=== PATIENT | female | born 1965 ===

== ENCOUNTER 2016-06-04 12:09 | Emergency (ER) | payer OTHER ==
[2016-06-04 12:09] VITALS: BMI 32.9
[2016-06-04 12:24] VITALS: TEMP 97.7
--- NOTE | 2016-06-04 13:40 | C.PDOC ---
History Of Present Illness A 50 year old female presents, with a past medical history of Asthma and seasonal allergies, presents to the emergency room for the evaluation of a burning pruritic sensation to the face associated with dry rash, nasal swelling , and congestion that has gradually developed over the past week. Patient notes these symptoms have coincided with the recent weather changes. Patient admits similar symptoms in the past that are consistent with seasonal allergies. Patient states that she is usually treated with steroids by PMD. Patient otherwise denies fever, chills, headaches, dizziness, drooling, chest pain, shortness of breath, wheezing, or any other complaints. Time Seen by Provider: 06/04/16 13:06 Chief Complaint (Nursing): Allergic Reaction History Per: Patient History/Exam Limitations: no limitations Onset/Duration Of Symptoms: Gradual, Other (1 week) Current Symptoms Are (Timing): Still Present Possible Cause: Seasonal Allergies Associated Symptoms: Skin Rash, Swelling (Nasal swelling), Itching. denies: Trouble Swallowing Home/EMS Treatment: Steroids (Usually treated with steroid by PMD in the past.) Severity: Mild Recent travel outside of the [place]: No Past Medical History Reviewed: Historical Data, Nursing Documentation, Vital Signs Vital Signs: Last Vital Signs Temp 97.7 F 06/04/16 12:23 Pulse 72 06/04/16 13:57 Resp 18 06/04/16 13:57 BP 124/72 06/04/16 13:57 Pulse Ox 98 06/04/16 13:57 - Medical History PMH: Asthma Family History: States: Unknown Family Hx - Social History Hx Alcohol Use: No Hx Substance Use: No - Immunization History Hx Tetanus Toxoid Vaccination: Yes Hx Influenza Vaccination: No Hx Pneumococcal Vaccination: No Review Of Systems Except As Marked, All Systems Reviewed And Found Negative. Constitutional: Negative for: Fever, Chills ENT: Positive for: Nose Congestion, Other (Nasal swelling). Negative for: Nose Pain, Nose Discharge Cardiovascular: Negative for: Chest Pain Respiratory: Negative for: Cough, Shortness of Breath, Wheezing Gastrointestinal: Negative for: Nausea, Vomiting, Abdominal Pain, Diarrhea Skin: Positive for: Rash (Dry rash), Other (Burning pruritic sensation to the face) Neurological: Negative for: Headache, Dizziness Physical Exam - Physical Exam Appears: Well, Non-toxic, No Acute Distress Skin: Normal Color, Warm, Rash (dry erythematous rash perinasal area extend down to nasolabial and chin area. No cellulitis.) Eye(s): bilateral: Normal Inspection Nose: Other (buggy nasal mucosa) Oral Mucosa: Moist, No Drooling Tongue: Normal Appearing, No Swelling Lips: Normal Appearing, No Swelling Throat: Normal, No Erythema, No Exudate, No Drooling, Other (uvula midline, no edema.) Neck: Normal, Normal ROM, Supple Respiratory: Normal Breath Sounds, No Stridor, No Wheezing Extremity: Normal ROM, No Pedal Edema Neurological/Psych: Oriented x3, Normal Speech ED Course And Treatment O2 Sat by Pulse Oximetry: 97 Pulse Ox Interpretation: Normal Progress Note: On re-eavluation, pt is afebrile, hemodynmaicaly stable. Non- toxic. PulseOx 98% RA. ENT: no acute findings. uvula midline, no edema. Lungs : CTA B/L, BS equal B/L. neck: (-) meningeal sign. Pt has clinical findings c/ w seasonal allergy, eczema. Pt advised on course of ds. ref. to f/u with PMD in 2-3 days for re-eval. returbn if any new changes. Disposition Counseled Patient/Family Regarding: Diagnosis, Need For Followup, Rx Given - Disposition Referrals: Avelino Pitts MD [Staff Provider] - Disposition: HOME/ ROUTINE Disposition Time: 13:20 Condition: STABLE Additional Instructions: Take medication as prescribed Vaseline on area of eczema Follow up with PMD, [facility] in 2-3 days for re-evaluation. Return to Ed if nay worsening or new changes. Prescriptions: Loratadine [Claritin] 10 mg PO DAILY #10 tab Prednisone [Deltasone] 20 mg PO DAILY #4 tablet Instructions: Dermatitis (ED) - Clinical Impression Clinical Impression: Eczema of face, Seasonal allergies - Scribe Statement The provider has reviewed the documentation as recorded by the Scribrudolph Bradley All medical record entries made by the Scribe were at my direction and personally dictated by me. I have reviewed the chart and agree that the record accurately reflects my personal performance of the history, physical exam, medical decision making, and the department course for this patient. I have also personally directed, reviewed, and agree with the discharge instructions and disposition.
[2016-06-04 13:58] VITALS: BP 124/72; PULSE 72; RESP 18
[2016-06-04 20:55] VITALS: O2SAT 97
== END 2016-06-04 13:59 | disposition home or self-care (01) ==
LOC: C.ER 12:09
DX: L30.9 Dermatitis, unspecified (principal); J30.2 Other seasonal allergic rhinitis

== ENCOUNTER 2018-06-26 19:34 | Emergency (ER) | payer MEDICAID, OTHER ==
[2018-06-26 19:35] VITALS: BMI 32.9
[2018-06-26 19:43] VITALS: BP 157/83; PULSE 97; TEMP 98.4; O2SAT 98
--- NOTE | 2018-06-26 19:58 | C.PDOC ---
History Of Present Illness 52 year old female presents to ED with complaint of left wrist pain for the past 4 days and left knee pain for the past week. Patient notes increased pain on the left wrist with movement that improved slightly after applying topical bengay cream. Patient rates the wrist pain as a 6/10. Patient states that her knee pain makes it difficult to weight at times. She rates the pain to her knee as an 8/10. Patient denies trauma, fall, weakness, numbness, tingling, calf pain, or deformities. Time Seen by Provider: 06/26/18 19:53 Chief Complaint (Nursing): Upper Extremity Problem/Injury History Per: Patient History/Exam Limitations: no limitations Onset/Duration Of Symptoms: Days (7) Current Symptoms Are (Timing): Still Present Quality: "Pain" Pain Scale Rating Of: 8 Past Medical History Reviewed: Historical Data, Nursing Documentation, Vital Signs Vital Signs: Last Vital Signs Temp 98.4 F 06/26/18 19:39 Pulse 97 H 06/26/18 19:39 Resp 18 06/26/18 19:39 BP 157/83 H 06/26/18 19:39 Pulse Ox 98 06/26/18 19:39 Primary Care Provider: FAMILY PROVIDER,NO - Medical History PMH: Asthma Surgical History: No Surg Hx Family History: States: Unknown Family Hx - Social History Hx Alcohol Use: No Hx Substance Use: No - Immunization History Hx Tetanus Toxoid Vaccination: Yes Hx Influenza Vaccination: No Hx Pneumococcal Vaccination: No Review Of Systems Constitutional: Negative for: Weakness, Malaise Gastrointestinal: Negative for: Nausea, Vomiting Musculoskeletal: Positive for: Hand Pain (left wrist pain ), Leg Pain (left knee pain ). Negative for: Neck Pain Skin: Negative for: Rash, Bruising Neurological: Negative for: Weakness, Numbness, Headache, Dizziness Physical Exam - Physical Exam Appears: Non-toxic, No Acute Distress Skin: Normal Color, Warm, Dry Head: Atraumatic, Normacephalic Eye(s): bilateral: Normal Inspection Neck: Normal ROM, Supple Chest: Symmetrical Cardiovascular: Rhythm Regular Respiratory: Normal Breath Sounds, No Wheezing Extremity: No Normal ROM (limited due to pain), Tenderness (to palpation of left wirst and left knee), No Pedal Edema, No Calf Tenderness, Capillary Refill (less than 2 seconds), No Deformity, No Swelling, Other (no edema, no erythema, no ecchymosis ) Extremity: Bilateral: Atraumatic, Normal Color And Temperature, Normal ROM Pulses: Left Radial: Normal, Right Radial: Normal Neurological/Psych: Oriented x3, Normal Speech, Normal Cognition, Normal Motor, Normal Sensation Gait: Steady ED Course And Treatment O2 Sat by Pulse Oximetry: 98 (in RA) Pulse Ox Interpretation: Normal - Other Rad left knee X-Ray: Viewed By Me, Read By Radiologist Interpretation: Accession No. : [id number]. Patient Name / ID : LUCY DUFF / [id number]. Exam Date : 06/26/2018 20:39:08 ( Approved ). Study Comment : Sex / Age : F / 52Y. Creator : Krystle Brenner MD. Dictator : Krystle Brenner MD. Supplier Development Manager : Machine Tracer : Krystle Brenner MD. Approver2 : Report Date : 06/27/2018 15:31:53. My Comment : . Date of service: 06/26/2018. PROCEDURE: Left Knee Radiographs. HISTORY: Pain. COMPARISON: None. TECHNIQUE: 2 views obtained. FINDINGS: BONES: Normal. No fracture. JOINTS: Moderate to severe osteoarthritic changes. JOINT EFFUSION: None. OTHER FINDINGS: None. IMPRESSION: No evidence of acute fracture or dislocation. Moderate to severe osteoarthritis. right wrist X-Ray: Viewed By Me, Read By Radiologist Interpretation: Accession No. : [id number]. Patient Name / ID : LUCY DUFF / [id number]. Exam Date : 06/26/2018 20:38:39 ( Approved ). Study Comment : Sex / Age : F / 52Y. Creator : Ana Olivo MD. Dictator : Ana Olivo MD. Supplier Development Manager : Machine Tracer : Ana Olivo MD. Approver2 : Report Date : 06/27/2018 10:55:41. My Comment : . Date of service: 06/26/2018. PROCEDURE: Left Wrist Radiographs. . HISTORY: Pain. COMPARISON: None. TECHNIQUE: 4 views obtained. FINDINGS: BONES: Bone alignment is normal. There is no acute displaced fracture or bone destruction. There is periarticular bone demineralization. There is an old fracture deformity in the styloid process of ulna. JOINTS: Normal. No dislocation. SOFT TISSUES: Normal. OTHER FINDINGS: None. IMPRESSION: No acute displaced fracture or dislocation. Medical Decision Making Medical Decision Making: Impression: 52 year old female presents to ED with complaint of left wrist pain for the past 4 days and left knee pain for the past week. Initial Plan:naproxen po Left knee and wrist x-ray ordered and reviewed Knee- OA; wrist- There is an old fracture deformity in the styloid process of ulna Patient notified of the results and wrist brace place; knee wrapped with greg patient advised to continue meds as prescribed Rest, Ice, Compression, and Elevation Follow up with Ortho in 1-2 days Return to the ED if symptoms worsen patient stable for discharge Disposition Counseled Patient/Family Regarding: Diagnosis, Need For Followup, Rx Given - Disposition Referrals: Orthopedic Clinic at [Outside] Bill Carbajal MD [Staff Provider] - Disposition: HOME/ ROUTINE Disposition Time: 21:50 Condition: STABLE Additional Instructions: Continue meds as prescribed Rest, Ice, Compression, and Elevation Follow up with Ortho in 1-2 days Return to the ED if symptoms worsen Prescriptions: Naproxen [Naprosyn] 500 mg PO BID #30 tablet Instructions: De Quervain's Tenosynovitis, Knee Pain (DC) Forms: [employer] (Telugu) - Clinical Impression Clinical Impression: Left wrist pain, Left knee pain - PA / MANUFACTURING ASSOCIATE / Resident Statement /DO has reviewed & agrees with the documentation as recorded. (Sherita Rojas) - Scribe Statement The provider has reviewed the documentation as recorded by the Scribe (Sherita Rojas) All medical record entries made by the Scribe were at my direction and personally dictated by me. I have reviewed the chart and agree that the record accurately reflects my personal performance of the history, physical exam, medical decision making, and the department course for this patient. I have also personally directed, reviewed, and agree with the discharge instructions and disposition.
[2018-06-26] MEDS ORDERED: Naproxen 550 mg Tab PO STA (20:35)
[2018-06-26] MEDS ORDERED: Naproxen 550 mg Tab PO ONE (20:43)
[2018-06-26 22:06] VITALS: RESP 20
--- NOTE | 2018-06-27 10:59 | RAD ---
Date of service: 06/26/2018 PROCEDURE: Left Wrist Radiographs. HISTORY: Pain COMPARISON: None. TECHNIQUE: 4 views obtained. FINDINGS: BONES: Bone alignment is normal. There is no acute displaced fracture or bone destruction. There is periarticular bone demineralization. There is an old fracture deformity in the styloid process of ulna. JOINTS: Normal. No dislocation. SOFT TISSUES: Normal. OTHER FINDINGS: None. IMPRESSION: No acute displaced fracture or dislocation.
--- NOTE | 2018-06-27 15:35 | RAD ---
Date of service: 06/26/2018 PROCEDURE: Left Knee Radiographs. HISTORY: Pain. COMPARISON: None. TECHNIQUE: 2 views obtained. FINDINGS: BONES: Normal. No fracture. JOINTS: Moderate to severe osteoarthritic changes. JOINT EFFUSION: None. OTHER FINDINGS: None. IMPRESSION: No evidence of acute fracture or dislocation. Moderate to severe osteoarthritis.
== END 2018-06-26 22:05 | disposition home or self-care (01) ==
LOC: C.ER 19:34
DX: M25.532 Pain in left wrist (principal); M25.562 Pain in left knee